=== PATIENT | male | born 2000 | race Caucasian/White ===

== ENCOUNTER → 2021-06-16 | Outpatient (CLI) | payer OTHER | LOC: KOH-I 16:21 | DX: M25.512 Pain in left shoulder (principal) | CPT/HCPCS: 73030 ==

== ENCOUNTER 2021-06-27 00:35 | Emergency (ER) | payer OTHER ==
[2021-06-27] MEDS ORDERED: DOXYCYCLINE MO100 MG PO (00:55)
== END 2021-06-27 01:06 | disposition home or self-care (01) ==
LOC: ER1 00:35
DX: L73.9 Follicular disorder, unspecified (principal); F17.290 Nicotine dependence, other tobacco product, uncomplicated
CPT/HCPCS: 86694; 99282